=== PATIENT | female | born 1985 | race Caucasian/White ===

== ENCOUNTER 2017-10-25 16:03 | Inpatient (IN) | payer OTHER ==
[~2017-10-25] VITALS: Ht 154.9 cm; Wt 47.7 kg
[~2017-10-25 16:03] MED LIST: ALPRAZOLAM1 M2 PO; DEXTROAMP-AMPHE20 M1 PO; DEXTROAMP-AMPHE20 MG PO; FLUOXETINE HCL10 M2 PO; MIRTAZAPINE7.5 M1 PO; OMEPRAZOLE20 M2 PO; ONE DAILY MULT1 EAC2 PO; SENOKOT-S TABL1 EACH PO
--- NOTE | 2017-10-25 17:10 | ED PSYCHIATRIC COMPLAINT ---
History of Present Illness General Chief Complaint: ETOH/Drug Related Complaint Stated Complaint: ETOH DETOX Source: patient Exam Limitations: no limitations Vital Signs & Intake/Output Vital Signs & Intake/Output Vital Signs Date Time Temp Pulse Resp B/P B/P Pulse O2 O2 Flow FiO2 Mean Ox Delivery Rate 10/26 0000 97.9 86 20 132/97 10/26 0000 98 Room Air 10/25 2157 99.2 79 16 60955/8 10/25 2100 99.2 79 16 125/86 99 10/25 1907 98.8 74 18 131/83 100 Room Air 10/25 1900 98.8 74 18 131/83 10/25 1854 Room Air 10/25 1606 98.9 93 18 125/87 98 Room Air ED Intake and Output 10/26 0000 10/25 1200 Intake Total Output Total Balance Patient 104 lb Weight Weight Reported by Patient Measurement Method Allergies Coded Allergies: NO KNOWN ALLERGIES (04/11/11) Reconcile Medications Alprazolam 1 MG TABLET 1 TAB PO TID ANXIETY (Reported) Dextroamphetamine/Amphetamine (Dextroamp-Amphetamin 20 MG Tab) 20 MG TABLET 1 TAB PO DAILY PRN ADHD (Reported) Dextroamphetamine/Amphetamine (Dextroamp-Amphet ER 20 MG Cap) 20 MG CAP.ER.24H 1 CAP PO QAM ADHD (Reported) Fluoxetine HCl 10 MG CAPSULE 1 CAP PO DAILY DEPRESSION (Reported) Mirtazapine 7.5 MG TABLET 1 TAB PO QPM SLEEP (Reported) Multivitamin (One Daily Multivitamin) 1 EACH TABLET 1 TAB PO DAILY MULTIVITAMIN Omeprazole 20 MG CAPSULE.DR 40 MG PO DAILY AC ACIDITY Sennosides/Docusate Sodium (Senokot-S Tablet) 8.6 MG-50 MG TABLET 1 TAB PO QPM GI (Reported) Triage Note: 31 YO FEMALE TO TRIAGE REQUESTING ALCOHOL DETOX. STATES SHE DRINKS VODKA DAILY, UNABLE TO QUANTIFY AMOUNT "I JUST PUT IT IN A WATER BOTTLE" STATES HAS BEEN DRINKING DAILY FOR APPROX 1 YEAR. STATES WAS HERE LAST YEAR FOR DETOX, STATES +SEIZURE HX WITH D/T'S. DENIES SI/HI. Triage Nurses Notes Reviewed? yes : No Patient currently breastfeeds: No HPI: Patient presents for evaluation of alcohol dependence and withdrawal. Patient states that she typically drinks about 4-5 vodka beverages daily but can't quantify the actual amount. Patient states that she has been drinking for about one year after the detox program. Patient denies any associated drug use. Last alcohol intake was last night. Patient does refer a history of a seizure associated with alcohol withdrawal years ago. Patient describes her symptoms as severe and nothing seems to make her feel better including Xanax that she currently takes. (Wesly Landeros MD) Past History Travel History Traveled to [place] past 21 day No Medical History Any Pertinent Medical History? 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 No (Wesly Landeros MD) Review of Systems Review of Systems Constitutional: Reports: no symptoms. EENTM: Reports: no symptoms. Respiratory: Reports: no symptoms. Cardiovascular: Reports: no symptoms. GI: Reports: no symptoms. Genitourinary: Reports: no symptoms. Musculoskeletal: Reports: no symptoms. Skin: Reports: no symptoms. Neurological/Psychological: Reports: see HPI. Hematologic/Endocrine: Reports: no symptoms. Immunologic/Allergic: Reports: no symptoms. All Other Systems: Reviewed and Negative (Wesly Landeros MD) Physical Exam Physical Exam General Appearance: SEE BELOW Neurological/Psychiatric: SEE BELOW Comments: General: Alert, calm, cooperative Head: Normocephalic, atraumatic Eyes: Normal inspection, no nystagmus, EOMI Ears: Normal inspection Nose: Normal inspection Throat: Moist mucosa Neck: Supple, no goiter Heart: Regular rate and rhythm, no murmurs rubs or gallops Lungs: Clear to auscultation bilaterally with good air entry Abdomen: Soft nontender nondistended, normal bowel sounds Chest: Nontender Extremities: Normal range of motion grossly, mild tremors present, no cyanosis clubbing or edema of the upper extremities Neurologic: cranial nerves II through XII grossly intact, speech clear, gait normal Psychiatric: No apparent delusions or hallucinations, no pressured speech or thought blocking, mildly anxious SAD PERSONS Done? patient not suicidal (Wesly Landeros MD D.) Progress Differential Diagnosis: ALCOHOL WITHDRAWAL, ELECTROLYTE ABNORMALITY, DEHYDRATION , DRUG ABUSE Plan of Care: Orders Procedure Date/time Status Regular Diet 10/26 B Active OXYGEN SETUP (GEN) 10/27 11 Active Saline Lock 10/27 11 Active Admit to inpatient 10/27 11 Active Vital Signs 10/27 11 Active Activity/Ambulation 10/27 11 Active Code Status 10/27 11 Active Pathway - chart 10/25 2004 Active CIWA 10/25 1709 Active URINE DRUG SCREEN FOR ER ONLY 10/25 1709 Complete MAGNESIUM 10/25 1709 Complete LIPASE 10/25 1709 Complete ETHANOL 10/25 1709 Complete COMPREHENSIVE METABOLIC PANEL 10/25 1709 Complete CBC WITHOUT DIFFERENTIAL 10/25 1709 Complete Current Medications Sig/Guy Start time Last Medication Dose Stop Time Status Admin Lorazepam 2 MG Q2P PRN 10/25 2014 UNVr 10/25 (Ativan) 220 Lorazepam 1 MG Q2P PRN 10/25 2014 UNVr (Ativan) Laboratory Tests 10/25/17 1828: Urine Opiates Screen < 100, Methadone Screen < 40, Barbiturate Screen < 60, Ur Phencyclidine Scrn < 6.00, Amphetamines Screen < 100, U Benzodiazepines Scrn > 800 H, Urine Cocaine Screen < 50, Urine Cannabis Screen 7.20 10/25/17 1814: Anion Gap 15, Estimated GFR > 60, BUN/Creatinine Ratio 16.7, Glucose 112 H, Calcium 9.9, Magnesium 1.3 L, Total Bilirubin 1.0, AST 218 H, ALT 127 H, Alkaline Phosphatase 85, Total Protein 7.6, Albumin 4.4, Globulin 3.2, Albumin/ Globulin Ratio 1.4, Lipase 165, CBC w Diff NO MAN DIFF REQ, RBC 4.88, MCV 96.5, MCH 31.7 H, MCHC 32.8 L, RDW 14.3, MPV 8.4, Gran % 67.2, Lymphocytes % 23.0, Monocytes % 9.3, Eosinophils % 0.1, Basophils % 0.4, Absolute Granulocytes 4.9, Absolute Lymphocytes 1.7, Absolute Monocytes 0.7 H, Absolute Eosinophils 0, Absolute Basophils 0, Serum Alcohol < 10.0 Comments: 10/25/2017 7:46:52 PM patient's CIWA score is at least 8 at this time. She has a history of seizures and therefore meets criteria for inpatient detoxification according to the [facility] emergency medicine alcohol detoxification protocol. 10/25/2017 7:58:04 PM patient signed out to Dr. Fisher at shift change person pending insurance authorization for admission. (Leti BULL,Wesly Walker) Comments: Authorization for hospitalization for alcohol dependence and withdrawal. (Natalia BULL,[place]) Departure Departure Disposition: STILL A PATIENT Condition: Stable Clinical Impression Primary Impression: Alcohol withdrawal Qualifiers: Complication of substance-induced condition: uncomplicated Qualified Code: F10.230 - Alcohol dependence with withdrawal, uncomplicated Referrals: Unknown (PCP/Family) Departure Forms: Customer Survey General Discharge Information (Leti BULL,Wesly Walker) Admission Note Spoke With: Orville Celeste MD Documentation of Exam: Documentation of any treatments & extenuating circumstances including Concerns Regarding Discharge (functional status, medication knowledge or non-compliance, living conditions, etc.) that warrant an admission rather than observation: Psychiatric evaluation for alcohol dependence serial CIWA medications to prevent DTs withdrawal seizure medication adjustment continuing care discharge planning ([place] Fisher MD)
[2017-10-25 18:30] LABS: ABSOLUTE BASOPHIL COUNT 0 /CUMM (0.0-0.2); ABSOLUTE EOSINOPHIL COUNT 0 /CUMM (0.0-0.7); ABSOLUTE GRANULOCYTE CT 4.9 /CUMM (1.4-6.5); ABSOLUTE LYMPH COUNT 1.7 /CUMM (1.2-3.4); ABSOLUTE MONOCYTE COUNT 0.7 /CUMM (0.10-0.60); BASOPHIL % 0.4 % (0.0-2.0); EOSINOPHIL % 0.1 % (0-5); GRANULOCYTE % 67.2 % (42.2-75.2); HEMATOCRIT 47.1 % (37-47); MEAN CORPUSCULAR HGB 31.7 PG (27.0-31.0); MEAN CORPUSCULAR HGB CONC 32.8 G/DL (33.0-37.0); MEAN CORPUSCULAR VOLUME 96.5 FL (81.0-99.0); MEAN PLATELET VOLUME 8.4 FL (7.4-10.4); PLATELET COUNT 289 /CUMM (130-400); RBC DISTRIBUTION WIDTH 14.3 % (11.5-14.5); RED BLOOD CELL CT 4.88 /CUMM (4.20-5.40); WHITE BLOOD CELL COUNT 7.3 /CUMM (4.8-10.8)
[2017-10-25 19:00] VITALS: BP 131/83
[2017-10-25 21:57] VITALS: BP 13125/8
[2017-10-26] VITALS (12 sets, daily range): BP systolic 120–140; BP diastolic 82–108
--- NOTE | 2017-10-26 00:41 | History & Physical ---
MartinsMalena Wallace 10/26/17 0035: General Information and HPI MD Statement: I have seen and personally examined BIJU PLASCENCIA and documented this H&P. The patient is a 31 year old F who presented with a patient stated chief complaint of [Alcohol Detox]. Source of Information: patient, old records Exam Limitations: no limitations History of Present Illness: Ms. Plascencia is a 31yo F w/ PMH of hypertension, hyperlipidemia, alcohol dependence, anxiety, history of pancreatitis, ADHD, presented to ER with request for alcohol detox. Her last drink was last night. Patient also stated positive seizure history of alcohol withdrawal, however denies suicidal/homicidal ideations. Patient had underwent detox program at a rehab around 2010 where she developed a possible alcohol-withdrawal seizure during the program, however she could not remember the details. Also, she developed pancreatitis about the same time and resolved after. Patient had been sober without alcohol till 2015 when she picked up drinking and underwent alcohol detox at [facility], later discharged, however only shortly after when she picked up drinking again. This time, she also c/o nausea/non bloody vomiting/abdominal pain/possible black stool w/o BRBPR on/off in the past weeks, with decreasing appetites. Her last drink was the night before admission with about 4-5 cups of alcoholic beverage. During our clinical interaction, patient denied fever/night sweat/cough/SOB/ Chest Pain/Palpitation/urinary abnormality, or other skin/musculoskeletal/ neurological disorders. -Smoking:denied -Alcohol: 4-5 vodka beverages daily x 1 yr after last detox -Rec Drugs: denied Allergies/Medications Allergies: Coded Allergies: NO KNOWN ALLERGIES (04/11/11) Home Med list Alprazolam 1 MG TABLET 1 TAB PO TID ANXIETY (Reported) Dextroamphetamine/Amphetamine (Dextroamp-Amphetamin 20 MG Tab) 20 MG TABLET 1 TAB PO DAILY PRN ADHD (Reported) Dextroamphetamine/Amphetamine (Dextroamp-Amphet ER 20 MG Cap) 20 MG CAP.ER.24H 1 CAP PO QAM ADHD (Reported) Lisinopril 5 MG TABLET 1 TAB PO DAILY bp (Reported) Metoprolol Succinate 100 MG TAB.ER.24H 1 TAB PO DAILY bp (Reported) Multivitamin (One Daily Multivitamin) 1 EACH TABLET 1 TAB PO DAILY MULTIVITAMIN Rosuvastatin Calcium (Crestor) 5 MG TABLET 1 TAB PO DAILY bp (Reported) Sennosides/Docusate Sodium (Senokot-S Tablet) 8.6 MG-50 MG TABLET 1 TAB PO QPM GI (Reported) Past History Travel History Traveled to [place] past 21 day No Medical History Neurological: NONE EENT: NONE Cardiovascular: hypertension, hyperlipidemia Respiratory: NONE Gastrointestinal: NONE Hepatic: NONE Renal: NONE Musculoskeletal: NONE Psychiatric: alcohol dependence, anxiety Endocrine: NONE, PANCRETITIS Blood Disorders: NONE Cancer(s): 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 boyfriend Primary Language: Serbian ETOH Use: alcoholic Functional Ability ADLs Independent: dressing, eating, toileting, bathing. Ambulation: independent IADLs Independent: shopping, housework, finances, food prep, telephone, transportation , medication admin. Review of Systems Review of Systems Constitutional: Reports: see HPI. Exam & Diagnostic Data Last 24 Hrs of Vital Signs/I&O Vital Signs Date Time Temp Pulse Resp B/P B/P Pulse O2 O2 Flow FiO2 Mean Ox Delivery Rate 10/26 0141 97.1 88 20 136/82 / 0000 97.9 86 20 132/97 05/ 0000 98 Room Air 10/25 2157 99.2 79 16 94839/8 05/ 2100 99.2 79 16 125/86 99 10/25 1907 98.8 74 18 131/83 100 Room Air 10/25 1900 98.8 74 18 131/83 10/25 1854 Room Air 10/25 1606 98.9 93 18 125/87 98 Room Air Intake & Output 10/26 0800 / 0000 10/25 1600 Intake Total Output Total Balance Patient 47.174 kg Weight Weight Reported by Patient Measurement Method Physical Exam General Appearance Alert, Oriented X3, Cooperative, Mild Distress Skin No Rashes, No Breakdown, No Significant Lesion Skin Temp/Moisture Exam: Warm/Dry Sepsis Skin Exam (color): Normal for Ethnicity HEENT Atraumatic, PERRLA Neck Supple, No JVD Cardiovascular Regular Rate Lungs Clear to Auscultation, Normal Air Movement Abdomen Soft, Epigastric and RLQ abdominal tenderness on palpation. Neurological Normal Speech Extremities No Cyanosis, No Edema, Normal Pulses Last 24 Hrs of Labs/Charles: Laboratory Tests 10/25/17 1828: Urine Opiates Screen < 100, Methadone Screen < 40, Barbiturate Screen < 60, Ur Phencyclidine Scrn < 6.00, Amphetamines Screen < 100, U Benzodiazepines Scrn > 800 H, Urine Cocaine Screen < 50, Urine Cannabis Screen 7.20 10/25/17 1814: Anion Gap 15, Estimated GFR > 60, BUN/Creatinine Ratio 16.7, Glucose 112 H, Calcium 9.9, Magnesium 1.3 L, Total Bilirubin 1.0, AST 218 H, ALT 127 H, Alkaline Phosphatase 85, Total Protein 7.6, Albumin 4.4, Globulin 3.2, Albumin/ Globulin Ratio 1.4, Lipase 165, CBC w Diff NO MAN DIFF REQ, RBC 4.88, MCV 96.5, MCH 31.7 H, MCHC 32.8 L, RDW 14.3, MPV 8.4, Gran % 67.2, Lymphocytes % 23.0, Monocytes % 9.3, Eosinophils % 0.1, Basophils % 0.4, Absolute Granulocytes 4.9, Absolute Lymphocytes 1.7, Absolute Monocytes 0.7 H, Absolute Eosinophils 0, Absolute Basophils 0, Hepatitis A IgM Ab Pending, Hep Bs Antigen Pending, Hep B Core IgM Ab Conf Pending, Hepatitis C Antibody Pending, Serum Alcohol < 10.0 Assessment/Plan Assessment: Problem list & Assessment: Patient presented with voluntary request for alcohol detox, was remote history of alcohol withdrawal related seizures. Patient also had a history of pancreatitis, however, this time was only transaminitis without elevation of lipase/amylase. Patient also demonstrates some abdominal pain at epigastric/ right upper quadrant abdomen that may need further evaluation. Patient vomited during our clinical interaction while taking oral pills, was mostly food contents without any blood in vomitus. Will switch medications to IV and continue monitor. Will keep n.p.o. tonight Her lab derangement including hypokalemia and hypomagnesemia could be from alcohol abuse. Will correct accordingly. #Alcohol detox with history of alcohol withdrawal seizure #Transaminitis #Hypokalemia #Hypomagnesemia #Nausea/vomiting #PMH of hypertension, hyperlipidemia, anxiety, ADHD Hospital Course: - Admit to general medicine floor -[facility] protocol -Ativan q. 1 hour IV as needed per CIWA midnight, and restart on clear liquid diet as patient's tolerance after ultrasound. DVT prophylaxis Lovenox + ALPS NPO Full Code As Ranked By This Provider Problem List: 1. ALCOHOL WITHDRAWAL 2. Alcohol abuse 3. Anxiety 4. Transaminitis 5. Hypokalemia Core Measures/Misc (03/12) Acute Coronary Syndrome ACS Diagnosis: No Congestive Heart Failure Congestive Heart Failure Diagnosis No Cerebrovascular Accident CVA/TIA Diagnosis: No VTE (View Protocol) VTE Risk Factors No risk factors No Mechanical VTE Prophylaxis d/t N/A MechProphylax Ordered No VTE Pharm Prophylaxis d/t NA PharmProphylax ordered Sepsis (View protocol) Sepsis Present: No Ana Regansherita 10/26/17 0136: Resident Review Statement Resident Statement: examined this patient, discussed with internet marketing director Other Findings: Patient is a 31-year-old female with past medical history of alcohol abuse, alcohol withdrawal seizure, anxiety, ADHD, hypertension, hyperlipidemia, pancreatitis who presented to the ED today voluntarily for alcohol detoxification Patient reports that she has been drinking about 4-5 drinks of vodka(each 4-6 ounces) every day for the past 2 years. Last drink was last night. She has also been having nausea and vomiting with some vague abdominal discomfort in the epigastrium. Denies any chest pain, palpitations, headaches, diarrhea, constipation. Denies any bright red blood in stools but admits to dark stools. She was admitted to [facility] in 2016 for alcohol detox and since then she has never really been sober. She restarted drinking post discharge from rehabilitation. Cannot identify a trigger that led to drinking again. Denies any SI/HI. She tried to cut down on her drinking several times, but has been unsuccessful .She does have a history of alcohol seizure(2010) after she tried to tried detox herself. Vitals in the ER was stable. Labs significant for potassium of 3.2, chloride 91, AST 218, ALT 127, normal lipase, U tox positive for benzos. Physical exam General: Awake, alert, oriented, mild distress due to nausea HEENT: PERRLA, EOMI Chest clear breath sounds bilaterally CVS: S1 and S2 heard, no murmurs Abdomen: Tenderness in the right upper quadrant and epigastrium. Extremities: No edema, palpable pulses Assessment Alcohol detoxification Alcoholic gastritis History of alcohol withdrawal seizure Benzo dependence Nausea and vomiting Transaminitis Hypokalemia and hypomagnesemia Hypertension ADHD GERD Smoker Plan * [facility] * Seizure precautions/aspiration precautions * CINV protocol * Will start patient on Librium for alcohol detox, 25 mg 3 times a day * Ativan Q1 IV PRN per CIWA * We will get an EKG to check for QTC ,continue Tigan for nausea and vomiting * Banana bag, then continue KCL in 1/2 NS at 75 cc an hour * Multivitamin , thiamine and folate * Complete abdomen USG for transaminitis, we'll check hepatitis panel * Continue metoprolol for high blood pressure, holding lisinopril for now * We will hold Crestor for high LFTs, will hold XANAX * Continue Adderall for ADHD(pharmacy does not carry the medication, we will try to substitute for similar med) * Psychiatric consult * humidifier maintenance worker consult * DVT prophylaxis subcutaneous Lovenox * Full code * NPO now for ultrasound in a.m., then clear liquid diet and advance as tolerated Booker BULL, [facility] 10/26/17 0400: Attending MD Review Statement Attending Statement Attending MD Statement: examined this patient, discuss w/resident/PA/STUDENT ACCOUNTS COORDINATOR, agreed w/resident/PA/STUDENT ACCOUNTS COORDINATOR, reviewed images, amended to note Attending Assessment/Plan: 31 yo F smoker with h/o alcohol abuse, HTN, HLD, previous withdrawal seizure, pancreatitis, ADHD, anxiety, opiate dependence, last admitted for alcohol detox to [facility] in 2016, after which she continued to drink and is here today for alcohol detox. She drinks 4-6 ounces vodka daily, last drink was 1 day prior. She reports nausea, vomiting, vague epigastric and left sided abdominal discomfort. She has loss her appetite and is unable to keep anything down. She denies hematemesis, melena or BRBPR. C/o heartburn+. No fever/ chills. She tried to detox herself by cutting down her alcohol intake but this did not help. Denies SI or HI. Vitals stable except for labile BP. Exam: dry mucosa, Abd soft, epigastric and left lower quadrant mild tenderness, no rebound or guarding. Labs: K 3.2, bicarb 32, glucose 112, Mag 1.3, T. Bili 1.0, AST 218, ALT 127. Lipase 165. Urine tox positive for benzos and small amount of cannabis. Alcohol <10. Assessment and plan: 1. Alcohol withdrawal 2. Alcoholic gastritis 3. Transaminitis 2/2 alcohol use 4. History of anxiety, opiate dependence 5. Smoker 6. Hypokalemia and hypomagnesemia 7. Hypertension - Admit to General medicine - [facility] protocol - IV ativan per [facility] - PO Librium 25 TID, uptitrate based on [facility] - Obtain baseline EKG - Banana bag, then MVI/thiamine/folic acid - Clear liquid diet - IV pantoprazole - Supplement potassium and magnesium - Anti-emetics - Hold crestor - Hep panel 2015 was negative. - Check abdomen ultrasound to assess for liver parenchyma and pancreas - Resume metoprolol, dextro-amphetamine - If BP allows, can resume lisinopril - Hold xanax - Check TSH, free T4, B12, folic acid - Psych consult ADD, benzo dependence - Social work consult - Smoking cessation counseling, nicotine patch DVT ppx lovenox. Full code.
[2017-10-26] MEDS ORDERED: CRESTOR5 M1 PO (01:02)
[2017-10-26] MEDS ORDERED: LISINOPRIL5 M1 PO (01:02)
[2017-10-26] MEDS ORDERED: METOPROLOL SUC100 M2 PO (01:03)
--- NOTE | 2017-10-26 04:01 | Admission Certification ---
Admission Certification Certification Statement - As attending physician, I certify that at the time of - admission, based on clinical presentation, severity of - symptoms, need for further diagnostic testing and - therapeutic interventions, and risk of adverse outcomes - without in-hospital treatment, in my clinical assessment, - this patient requires an acute hospital stay for a minimum - of two nights or longer. I have also considered psychsocial - factors such as support system, advanced age, financial - issues, cognitive issues, and failed out-patient treatments, - past re-admission history, safety of patient, and lack of - compliance as applicable. Specific rationale supporting this admission is: Alcohol withdrawal.
--- NOTE | 2017-10-26 12:22 | ED PSYCHIATRIST/APRN CONSULT ---
Psychiatrist/[facility] ED Consult Assessment and Plan: CC: "I know I can't drink at all. The last time, I didn't follow up. this time, I want IOP. My work hours vary, but that won't interfere." HPI: 31-year-old single, domiciled female presents to triage on 2017 at 1608 with a chief complaint of requesting alcohol detox. She reports a history of seizure, DTs in the setting of alcohol detoxification. The seizure occurred after a fast benzodiazepine taper at another hospital before she was sent to [facility], where the seizures occurred. She recently stopped eating meat. PPHx: She is currently treated for ADHD and anxiety by Dr. Gail Villanueva, [address] [place] [address]. She has a history of treatment for depression. He is currently prescribin. Alprazolam 1 mg tablet #63/21 days, filled on 10/10/2017 2. Dextroamphetamine-amphetamine salts 30 mg tablets #21/21 days, filled on 3. Adderall X are 30 mg capsule #21/21 days, filled on 10/10/2017 Presentation s to the ED in 2010 (Alcohol detox), 2011 (+SI) and 2016 (Alcohol detox) [facility] 2010, followed by 5 years (Pt report) of sobriety. PsychSHx: The patient is currently living in her boyfriend's condo with him, at [address] [place] [address], [address] , [place], [place]. She is between jobs, but will work part-time in the [employer]. She does not have children. MSE: Alert, tired, with abdominal pain (Team aware), she is S/P liver US today; see the Addendum for report. Oriented to person, place, day, month, year. She denies current visual, tactile or auditory hallucinations, and presents no rell delusions. She reports She has had visual disturbances during alcohol withdrawal in the past, including streaks of light, and objects changing into people. She reports she feels safe here. She denies hopelessness, helplessness, worthlessness, or guilty feelings. She denies SI, HI, and denies history of suicide attempt. Impression: The patient is motivated for treatment, is willing to accept treatment at the [facility]. She had felt in the past that AA was not for her, after exposure at [facility] 6-7 years ago. She is willing to try it again, understanding that one of her goals should be to find a sponsor. Plan: 1. Chlordiazepoxide should be discontinued due to liver irritation, whereas lorazepam is less likely to worsenthis. It should be replaced with the standard ETOH Detox lorazepam order set, starting at Day One. If you need assistance with this, we will be happy to guide you. 2. Start daily thiamine, folic acid and MVI. 3. Stop methylphenidate. She is on amphetamine salts, IR and XR at home, which will likely exacerbate her anxiety during detox. 4. SW consult to assist with aftercare planning 5. Replete potassium and magnesium. 6. Please obtain a baseline EKG. 7. If violent or severe agitation, hallucinosis, imminent DTs, please consider a transfer to the ICU and a lorazepam IV drip. We will continue to follow along with you. Thank you for this consult. Addendum Addendum PATIENT: BIJU NAVAS PRESENT AGE: 31 PATIENT ACCOUNT NO: [id number] : 85 LOCATION: 2NB ORDERING PHYSICIAN: Chandler Regan MD SERVICE DATE: 10/26/17- EXAM TYPE: US - US-COMPLETE ABDOMEN EXAMINATION: US ABDOMEN COMPLETE CLINICAL INFORMATION: Transaminitis, tenderness in the epigastrium and right upper quadrant of the abdomen. COMPARISON: None TECHNIQUE: Real-time imaging of the abdominal viscera. FINDINGS: PANCREAS: Shows apparent subtle diffuse hypoechogenicity, may represent normal finding versus early edematous pancreatitis. Clinical and lab correlation is recommended. ABDOMINAL AORTA: The proximal segment is normal in caliber. INFERIOR VENA CAVA: Visualized portions are normal. LIVER: There is diffuse increased liver parenchymal echogenicity, consistent with diffuse liver disease. There is no sonographic evidence of superimposed discrete focal abnormality present. GALLBLADDER: Normal. The gallbladder is physiologically distended without evidence of stones, sludge, polyps, wall thickening or pericholecystic fluid. COMMON BILE DUCT: Normal in caliber measuring 0.2 cm in diameter. RIGHT KIDNEY: Normal. No hydronephrosis. No renal calculi or focal parenchymal lesions. The kidney measures 10.1 cm in maximum dimension. LEFT KIDNEY: Normal. No hydronephrosis. No renal calculi or focal parenchymal lesions. The kidney measures 10.8 cm in maximum dimension. SPLEEN: Normal. The spleen measures 9.5 cm in maximum dimension. FREE FLUID: None IMPRESSION: 1. Mild diffuse heterogeneous abnormal increased echotexture is noted within the liver, consistent with diffuse liver disease, likely hepatic steatosis. No sonographic evidence of any superimposed discrete focal abnormality present. 2. The pancreas shows apparent subtle diffuse hypoechogenicity, may represent normal finding versus mild early pancreatitis. Clinical and lab correlation is recommended. 3. Otherwise unremarkable. DICTATED BY: Roshan Bojorquez MD DATE/TIME DICTATED:10/26/171137 PATTERN GENERATOR OPERATOR:LUZMARIA DATE/TIME TRANSCRIBED:10/26/171137 CONFIDENTIAL, DO NOT COPY WITHOUT APPROPRIATE AUTHORIZATION
--- NOTE | 2017-10-26 12:30 | ULTRASOUND REPORT ---
EXAMINATION: US ABDOMEN COMPLETE CLINICAL INFORMATION: Transaminitis, tenderness in the epigastrium and right upper quadrant of the abdomen. COMPARISON: None TECHNIQUE: Real-time imaging of the abdominal viscera. FINDINGS: PANCREAS: Shows apparent subtle diffuse hypoechogenicity, may represent normal finding versus early edematous pancreatitis. Clinical and lab correlation is recommended. ABDOMINAL AORTA: The proximal segment is normal in caliber. INFERIOR VENA CAVA: Visualized portions are normal. LIVER: There is diffuse increased liver parenchymal echogenicity, consistent with diffuse liver disease. There is no sonographic evidence of superimposed discrete focal abnormality present. GALLBLADDER: Normal. The gallbladder is physiologically distended without evidence of stones, sludge, polyps, wall thickening or pericholecystic fluid. COMMON BILE DUCT: Normal in caliber measuring 0.2 cm in diameter. RIGHT KIDNEY: Normal. No hydronephrosis. No renal calculi or focal parenchymal lesions. The kidney measures 10.1 cm in maximum dimension. LEFT KIDNEY: Normal. No hydronephrosis. No renal calculi or focal parenchymal lesions. The kidney measures 10.8 cm in maximum dimension. SPLEEN: Normal. The spleen measures 9.5 cm in maximum dimension. FREE FLUID: None IMPRESSION: 1. Mild diffuse heterogeneous abnormal increased echotexture is noted within the liver, consistent with diffuse liver disease, likely hepatic steatosis. No sonographic evidence of any superimposed discrete focal abnormality present. 2. The pancreas shows apparent subtle diffuse hypoechogenicity, may represent normal finding versus mild early pancreatitis. Clinical and lab correlation is recommended. 3. Otherwise unremarkable.
--- NOTE | 2017-10-26 22:36 | PN- Att Addend ---
Attending Addendum Attending Brief Note S: The patient notes significant improvement in abdominal symptoms. Tolerating clear liquids w/o vomiting. O: VS: Vital Signs Date Time Temp Pulse Resp B/P B/P Pulse O2 O2 Flow FiO2 Mean Ox Delivery Rate 10/26 1445 98.4 84 18 122/96 98 Room Air 05/03 1400 136/96 05/ 1124 74 140/108 05/03 1000 74 140/108 05/ 0800 78 130/100 05/03 0700 98.3 125/100 05/03 0650 98.3 95 18 128/108 98 05/03 0440 128/100 05/03 0335 98.2 88 18 138/102 05/03 0310 98.2 88 18 138/102 96 05/03 0141 97.1 88 20 136/82 05/ 0000 97.9 86 20 132/97 05/03 0000 98 Room Air Intake & Output 10/26 1600 10/26 0800 05/ 0000 Intake Total 1250 450 Output Total Balance 1250 450 Intake, IV 450 450 Intake, Oral 800 Patient 104 lb 104 lb Weight Weight Reported by Patient Reported by Patient Measurement Method Current Medications Sig/Guy Start time Last Medication Dose Route Stop Time Status Admin Acetaminophen 325 MG Q6P PRN 10/26 0045 AC PO Atorvastatin Calcium 20 MG 1700 10/26 1700 CAN PO Chlordiazepoxide HCl 25 MG TID 10/26 0900 CAN PO Cyanocobalamin/ 1 BAG ONCE ONE 10/26 0230 DC 10/26 Thiamine/Pyridoxine IV 10/26 1029 0219 Dextrose/Water 1,000 ML Enoxaparin Sodium 40 MG DAILY 10/26 09 10/26 SC 1122 Fluoxetine HCl 10 MG DAILY 10/26 0900 CAN PO Folic Acid 1 MG DAILY 10/26 09 AC 10/26 PO 1121 Lisinopril 5 MG DAILY 10/26 0900 CAN PO Lorazepam 2 MG Q6 10/26 1200 AC 10/26 PO 1744 Lorazepam 0 .STK-MED ONE 10/26 0151 DC .ROUTE Lorazepam 1 MG Q1P PRN 10/26 0145 AC 10/26 IV 2044 Lorazepam 2 MG Q2P PRN 10/25 2014 AC 10/25 IV 2206 Lorazepam 1 MG Q2P PRN 10/25 2014 DC IV Magnesium Sulfate 1 GM ONCE ONE 10/26 0200 DC 10/26 Dextrose/Water 100 ML IV 10/26 0559 0211 Methylphenidate HCl 20 MG 0800,1200,1600 10/26 0800 DC PO Metoprolol Succinate 100 MG DAILY 10/26 0900 AC 10/26 PO 1124 Mirtazapine 7.5 MG QPM 10/26 2100 CAN PO Multivitamins 1 TAB DAILY 10/26 0900 AC 10/26 PO 1122 Omeprazole 40 MG DAILY AC 10/27 0700 AC PO Omeprazole 40 MG DAILY AC 10/26 0700 CAN PO Pantoprazole Sodium 40 MG DAILY 10/26 0900 DC 10/26 IV 1122 Patient Medication 1 ED ONE ONE 10/26 1200 DC 10/26 Teaching ED 10/26 1201 1434 Potassium Chloride 20 MEQ ONCE ONE 10/26 1830 DC 10/26 PO 10/26 1831 1946 Potassium Chloride 10 MEQ Q1H 10/26 1100 DC 10/26 IV 10/26 1201 1542 Potassium Chloride 40 MEQ ONCE ONE 10/26 1045 DC 10/26 PO 10/26 1046 1434 Potassium Chloride 0 .STK-MED ONE 10/26 0102 DC PO Potassium Chloride 20 MEQ Q13H 10/26 0100 AC 10/26 Sodium Chloride 1,000 ML IV 10/27 0600 1542 Potassium Chloride 40 MEQ ONCE ONE 10/26 0045 DC 10/26 PO 10/26 0046 0057 Thiamine HCl 100 MG DAILY 10/26 0900 AC 10/26 PO 1122 Trimethobenzamide HCl 200 MG 4 TIMES/DAY PRN 10/26 0100 AC 10/26 IM 0117 HEENT: neisha- sl dry mucosa Neck: supple Chest: clear Cor: RRR nl S1, S2 w/o murm Abd: BS+, soft, NT Ext: no edema Neuro: slightly sedated, however oriented and non-focal exam Labs/Tests: Laboratory Tests 10/26/17 1634: 10/26/17 0835: Anion Gap 11, Estimated GFR > 60, BUN/Creatinine Ratio 26.0 H, Magnesium 1.9, Vitamin B12 > 1000 H, Folate > 20.0 H, TSH 0.897, Free T4 1.13 Abd US: IMPRESSION: 1. Mild diffuse heterogeneous abnormal increased echotexture is noted within the liver, consistent with diffuse liver disease, likely hepatic steatosis. No sonographic evidence of any superimposed discrete focal abnormality present. 2. The pancreas shows apparent subtle diffuse hypoechogenicity, may represent normal finding versus mild early pancreatitis. Clinical and lab correlation is recommended. 3. Otherwise unremarkable. Impression/Plan: #Alcohol Dependence/Withdrawal- as above patient oriented and improved. Appreciate psychiatry input. Plan: Agree with psychiatry to change from Librium to Ativan as LFT's are abnormal. Continue CIWA protocol, MVI, thiamine, folate, etc. Social Service consult. #Hypokalemia/Hypomagnesemia- due to vomiting/nutrition issues. Plan: Being repleted and will follow. #Abnormal LFT's/Transaminitis- most c/w alcoholic hepatitis. US c/w fatty liver. Plan: Will trend and follow as OP. #Gastritis- c/w alcohol related gastritis. Much improved. Plan: Advance diet as tolerated. Continue Omeprazole.
[2017-10-27 06:58] VITALS: BP 132/96
--- NOTE | 2017-10-27 08:04 | PN- Housestaff ---
See Addendum Soto BULL,Darlyn 10/27/17 0804: Subjective Follow-up For: 1. Alcohol Detox 2. Alcoholic gastritis 3. Transaminitis 2/2 alcohol use 4. History of anxiety, opiate dependence 5. Smoker 6. Hypokalemia and hypomagnesemia 7. Hypertension Complaints: no complaints Subjective: Patient seen and examined. Complains of anxiety. Denies any other symptoms. No longer nauseaus, tolerating regular food. Review of Systems Constitutional: Reports: no symptoms. Objective Last 24 Hrs of Vital Signs/I&O Vital Signs Date Time Temp Pulse Resp B/P B/P Pulse O2 O2 Flow FiO2 Mean Ox Delivery Rate 10/27 1000 76 18 130/88 10/27 0850 76 130/88 10/27 0658 98.1 80 20 132/96 96 10/26 2242 98.2 87 20 120/86 98 10/26 1445 98.4 84 18 122/96 98 Room Air 10/26 1400 136/96 Intake & Output 10/27 1600 10/27 0800 10/27 0000 Intake Total 840 790 Output Total Balance 840 790 Intake, IV 600 550 Intake, Oral 240 240 Patient 105 lb Weight Weight Bed scale Measurement Method Physical Exam General Appearance: Alert, Oriented X3, Cooperative, No Acute Distress HEENT: Mucous Membr. moist/pink Cardiovascular: Regular Rate, Normal S1, Normal S2 Lungs: Clear to Auscultation, Normal Air Movement Abdomen: Normal Bowel Sounds, Soft, No Tenderness Extremities: No Edema, Normal Pulses Orders CIWA Score (last 24 hrs): 0-10 Lines/Diet/Fluids Lines: peripheral lines Assessment/Plan Assessment: 31 yo F smoker with h/o alcohol abuse, HTN, HLD, previous withdrawal seizure, pancreatitis, ADHD, anxiety, opiate dependence, last admitted for alcohol detox to [facility] in 2016, after which she continued to drink and is here today for alcohol detox. Problem List 1. Alcohol Detox/withdrawal 2. Alcoholic gastritis 3. Transaminitis 2/2 alcohol use 4. History of anxiety, opiate dependence 5. Smoker 6. Hypokalemia and hypomagnesemia 7. Hypertension Abd US- 1. Mild diffuse heterogeneous abnormal increased echotexture is noted within the liver, consistent with diffuse liver disease, likely hepatic steatosis. No sonographic evidence of any superimposed discrete focal abnormality present. 2. The pancreas shows apparent subtle diffuse hypoechogenicity, may represent normal finding versus mild early pancreatitis. Clinical and lab correlation is recommended. Plan -Continue CIWA protocol ativan PRN and PO ativan 2mg Q6hrs today as patient seems a bit more jittery today. CIWA score:0-10 in 24hrs -Titrate down to 2mg Q8hrs in AM -Nausea now resolved; was likely 2/2 alcoholic gastritis. Cont Tigan as needed -DC IVF -Transaminitis improving; likely 2/2 alcoholic hepatitis; continue daily LFTs -Hepatitis A,B and C neg -Electrolyte derangements corrected; monitor daily labs and correct as needed -Continue to hold Ritalin and xanax. can resume lisinopril if BP >140/90. -Continue nicotine patch -Continue Folate, thaimine and MVI -Continue Omeprazole -Psych and Social work input appreciated -Patient plans to go to [facility] on discharge -SC lovenox for DVT ppx -Heart healthy diet -FC Problem List: 1. Alcohol withdrawal 2. Transaminitis 3. Gastritis 4. Alcohol dependence Pain Ratin Pain Location: na Pain Goal: Remain pain free Pain Plan: na Tomorrow's Labs & Rationales: BEP, lfts DVT/Prophylaxis: pharmacological Estrada North MD 10/27/17 1247: Attending MD Review Statement Attending Statement Attending MD Statement: examined this patient, discuss w/resident/PA/PERFORMANCE SOLUTIONS SPECIALIST, agreed w/resident/PA/PERFORMANCE SOLUTIONS SPECIALIST, reviewed EMR data (avail), discussed with nursing, discussed with case mgmt, amended to note Attending Assessment/Plan: The patient was seen and discussed with house staff, nursing and case management. Her aide from home did not come in today (she is away x 1 week) and her son is in [place]. Today nursing was unable to get her to cooperate with taking PO meds or food. Due to advanced dementia she is not cooperating with people she does not know (she cooperated with her aide at home). Has bed at [facility], however unable to send until she is taking more po. Suggested nutrition involvement. Her aide says she likes ice cream and suggested mixing meds with this and making Ensure milkshakes. The nurse who was able to get her to take meds yesterday had had her also the previous day, so she may have been a "familiar face". Will continue IV fluids. If BP increases and not taking po meds consider IVPB Metoporol on floor (does not need tele).
[2017-10-27 10:00] VITALS: BP 130/88
[2017-10-27 15:07] VITALS: BP 130/98
[2017-10-27 16:00] VITALS: BP 130/98
[2017-10-27 21:34] VITALS: BP 130/90
--- NOTE | 2017-10-28 04:53 | PN- Housestaff ---
See Addendum Subjective Follow-up For: 1. Alcohol Detox 2. Alcoholic gastritis 3. Transaminitis 2/2 alcohol use 4. History of anxiety, opiate dependence 5. Smoker 6. Hypokalemia and hypomagnesemia 7. Hypertension Review of Systems Constitutional: Reports: no symptoms. Objective Last 24 Hrs of Vital Signs/I&O Vital Signs Date Time Temp Pulse Resp B/P B/P Pulse O2 O2 Flow FiO2 Mean Ox Delivery Rate 10/27 2134 98.9 86 18 130/90 100 10/27 1600 76 18 130/98 10/27 1507 98.3 76 20 130/98 98 Room Air 10/27 1000 76 18 130/88 10/27 0850 76 130/88 10/27 0658 98.1 80 20 132/96 96 Intake & Output 10/28 0800 10/28 0000 10/27 1600 Intake Total 1020 Output Total Balance 1020 Intake, IV 300 Intake, Oral 720 Physical Exam General Appearance: Alert, Oriented X3, Cooperative, No Acute Distress Cardiovascular: Regular Rate, Normal S1, Normal S2 Lungs: Clear to Auscultation, Normal Air Movement Abdomen: Normal Bowel Sounds, Soft, No Tenderness Extremities: No Edema, Normal Pulses Current Medications: Current Medications Sig/Guy Start time Last Medication Dose Route Stop Time Status Admin Acetaminophen 325 MG Q6P PRN 10/26 0045 AC PO Citalopram 20 MG DAILY 10/28 899 UNVr Hydrobromide PO Enoxaparin Sodium 40 MG DAILY 10/26 0900 AC 10/27 SC 0851 Folic Acid 1 MG DAILY 10/26 09 AC 10/27 PO 0851 Gabapentin 300 MG Q8 10/28 06 UNVr PO Lorazepam 1.5 MG Q6 10/28 0600 UNVr PO Lorazepam 2 MG Q6 10/26 1200 DC 10/27 PO 2301 Lorazepam 1 MG Q1P PRN 10/26 0145 AC 10/27 IV 2210 Lorazepam 2 MG Q2P PRN 10/25 2014 AC 10/28 IV 0153 Metoprolol Succinate 100 MG DAILY 10/26 0900 AC 10/27 PO 0850 Multivitamins 1 TAB DAILY 10/26 0900 AC 10/27 PO 0851 Nicotine 14 MG DAILY 10/27 1400 AC TOP Omeprazole 40 MG DAILY AC 10/27 0700 AC 10/27 PO 0511 Patient Medication 1 ED ONE ONE 10/27 1730 [facility] ED 10/27 1731 Potassium Chloride 20 MEQ Q13H 10/26 0100 SC 10/27 Sodium Chloride 1,000 ML IV 10/27 06 05 Thiamine HCl 100 MG DAILY 10/26 0900 AC 10/27 PO 0851 Trimethobenzamide HCl 200 MG 4 TIMES/DAY PRN 10/26 0100 10/26 IM 0117 Last 24 Hrs of Lab/Charles Results Last 24 Hrs of Labs/Mics: Laboratory Tests 10/27/17 0645: Anion Gap 10, Estimated GFR > 60, BUN/Creatinine Ratio 17.5, Magnesium 1.6, Total Bilirubin 1.2, Direct Bilirubin 0.4, AST 190 H, ALT 98 H, Alkaline Phosphatase 68, Total Protein 6.7, Albumin 3.8 Lines/Diet/Fluids Lines: peripheral lines Assessment/Plan Assessment: 31 yo F smoker with h/o alcohol abuse, HTN, HLD, previous withdrawal seizure, pancreatitis, ADHD, anxiety, opiate dependence, last admitted for alcohol detox to [facility] in 2015, after which she continued to drink and is here today for alcohol detox. Problem List 1. Alcohol Detox/withdrawal 2. Alcoholic gastritis 3. Transaminitis 2/2 alcohol use 4. History of anxiety, opiate dependence 5. Smoker 6. Hypokalemia and hypomagnesemia 7. Hypertension Abd US- 1. Mild diffuse heterogeneous abnormal increased echotexture is noted within the liver, consistent with diffuse liver disease, likely hepatic steatosis. No sonographic evidence of any superimposed discrete focal abnormality present. 2. The pancreas shows apparent subtle diffuse hypoechogenicity, may represent normal finding versus mild early pancreatitis. Clinical and lab correlation is recommended. Plan -Continue CIWA protocol ativan PRN -Taper PO ativan to 1.5mg Q6hrs today -Nausea now resolved; was likely 2/2 alcoholic gastritis. Cont Tigan as needed -Transaminitis improving; likely 2/2 alcoholic hepatitis; continue daily LFTs -Hepatitis A,B and C neg -Electrolyte derangements corrected; monitor daily labs and correct as needed -Continue to hold Ritalin and xanax. can resume lisinopril if BP >140/90. -Continue nicotine patch -Continue Folate, thaimine and MVI -Continue Omeprazole -Psych and Social work input appreciated -Patient plans to go to [facility] on discharge -SC lovenox for DVT ppx -Heart healthy diet -FC Problem List: 1. Alcohol dependence 2. ALCOHOL WITHDRAWAL 3. Transaminitis 4. Gastritis Pain Ratin Pain Location: na Pain Goal: Remain pain free Pain Plan: na Tomorrow's Labs & Rationales: none
[2017-10-28 06:23] VITALS: BP 133/89
[2017-10-28 14:14] VITALS: BP 124/88
[2017-10-28 23:48] VITALS: BP 118/83
[2017-10-29 07:02] VITALS: BP 116/71
--- NOTE | 2017-10-29 08:32 | PN- Housestaff ---
Aditi Paula 10/29/17 0832: Subjective Follow-up For: 1. Alcohol Detox 2. Alcoholic gastritis 3. Transaminitis 2/2 alcohol use 4. History of anxiety, opiate dependence 5. Smoker 6. Hypokalemia and hypomagnesemia 7. Hypertension Subjective: Patient is seen and examined this morning lying comfortably in the bed ,denies any complaints vital stable Review of Systems Constitutional: Denies: diaphoresis, fever, malaise. EENTM: Denies: double vision, visual changes, eye pain. Cardiovascular: Denies: edema, orthopena, palpitations. Respiratory: Denies: hemoptysis, orthopnea, short of breath. Gastrointestinal: Denies: bloating, constipation, diarrhea. Objective Last 24 Hrs of Vital Signs/I&O Vital Signs Date Time Temp Pulse Resp B/P B/P Pulse O2 O2 Flow FiO2 Mean Ox Delivery Rate 10/29 954 78 132/80 10/29 0702 98.1 78 20 116/71 100 Room Air 10/28 2348 97.5 83 20 118/83 100 Room Air 10/28 1414 97.8 79 20 124/88 99 Room Air Intake & Output 10/29 1600 10/29 0800 05/ 0000 Intake Total 700 Output Total Balance 700 Intake, Oral 700 Physical Exam General Appearance: Alert, Oriented X3 Skin: No Rashes, No Breakdown Skin Temp/Moisture Exam: Warm/Dry Current Medications: Current Medications Sig/Guy Start time Last Medication Dose Route Stop Time Status Admin Acetaminophen 325 MG Q6P PRN 10/26 0045 AC PO Citalopram 20 MG DAILY 10/28 899 AC 10/29 Hydrobromide PO 0956 Enoxaparin Sodium 40 MG DAILY 10/26 899 10/27 SC 0851 Folic Acid 1 MG DAILY 10/26 899 AC 10/29 PO 0956 Gabapentin 300 MG Q8 10/28 599 AC 10/29 PO 0623 Lorazepam 1.5 MG Q6 10/28 599 AC 10/29 PO 0623 Lorazepam 1 MG Q1P PRN 10/26 0145 AC 10/29 IV 0059 Lorazepam 2 MG Q2P PRN 10/25 2014 AC 10/28 IV 0153 Metoprolol Succinate 100 MG DAILY 10/26 899 AC 10/29 PO 0955 Multivitamins 1 TAB DAILY 10/26 899 AC 10/29 PO 0956 Nicotine 14 MG DAILY 10/27 1400 AC TOP Omeprazole 40 MG DAILY AC 10/27 0700 AC 10/29 PO 0623 Thiamine HCl 100 MG DAILY 10/26 0900 AC 10/29 PO 0955 Trimethobenzamide HCl 200 MG 4 TIMES/DAY PRN 10/26 0100 AC 10/26 IM 0117 Last 24 Hrs of Lab/Charles Results Last 24 Hrs of Labs/Mics: Laboratory Tests 10/29/17 0650: Anion Gap 10, Estimated GFR > 60, BUN/Creatinine Ratio 20.0, Total Bilirubin 0.5 , Direct Bilirubin 0.3, AST 108 H, ALT 93 H, Alkaline Phosphatase 59, Total Protein 6.1 L, Albumin 3.3 L Assessment/Plan Assessment: 31 yo F smoker with h/o alcohol abuse, HTN, HLD, previous withdrawal seizure, pancreatitis, ADHD, anxiety, opiate dependence, last admitted for alcohol detox to [place] in 2015, after which she continued to drink and is here today for alcohol detox. Problem List 1. Alcohol Detox/withdrawal 2. Alcoholic gastritis 3. Transaminitis 2/2 alcohol use 4. History of anxiety, opiate dependence 5. Smoker 6. Hypokalemia and hypomagnesemia 7. Hypertension Abd US- 1. Mild diffuse heterogeneous abnormal increased echotexture is noted within the liver, consistent with diffuse liver disease, likely hepatic steatosis. No sonographic evidence of any superimposed discrete focal abnormality present. 2. The pancreas shows apparent subtle diffuse hypoechogenicity, may represent normal finding versus mild early pancreatitis. Clinical and lab correlation is recommended. Plan -Continue CIWA protocol ativan PRN -Taper PO ativan to 1 mg Q6hrs today -Nausea now resolved; was likely 2/2 alcoholic gastritis. Cont Tigan as needed -Transaminitis improving; likely 2/2 alcoholic hepatitis; continue daily LFTs -Hepatitis A,B and C neg -Electrolyte derangements corrected; monitor daily labs and correct as needed -Continue to hold Ritalin and xanax. can resume lisinopril if BP >140/90. -Continue nicotine patch -Continue Folate, thaimine and MVI -Continue Omeprazole -Psych and Social work input appreciated -Patient plans to go to [facility] on discharge -SC lovenox for DVT ppx -Heart healthy diet -FC Problem List: 1. ALCOHOL WITHDRAWAL 2. Alcohol abuse Pain Ratin Pain Location: no pain at this time. Pain Goal: Remain pain free Pain Plan: As needed Tylenol Tomorrow's Labs & Rationales: CBC AND BEP Canelo Aguilar MD 10/29/17 1052: Attending MD Review Statement Attending Statement Attending MD Statement: examined this patient, discuss w/resident/PA/CIRCULAR KNITTER HELPER, agreed w/resident/PA/CIRCULAR KNITTER HELPER, discussed with family, reviewed EMR data (avail), discussed with nursing, discussed with case mgmt, reviewed images, amended to note Attending Assessment/Plan: Canelo Andre M.D. have examined this patient, reviewed available EMR data, personally reviewed images, discussed with resident/PA/CIRCULAR KNITTER HELPER, discussed management plan with housestaff and nursing staff, discussed managment plan all of healthcare providers, discussed management plan with patient and/or family, agreed with resident/PA/CIRCULAR KNITTER HELPER. The past history and parts of the chart have been autopopulated. Impression 31 year old woman * EtOH withdrawal/dependence * chronic xanax dependence * anxiety * Transaminitis related to etoh Plan -ativan per CIWA protocol -monitor electrolytes, LFTs (trending down) -f/u psychiatry and social work recommendations -IOP upon discharge -mvi, folate, thiamine -PPI for gastritis DVT prophylaxis at all times DC planning within 24 hours
[2017-10-29 10:00] VITALS: BP 120/72
[2017-10-29 14:33] VITALS: BP 122/70
[2017-10-29 21:30] VITALS: BP 136/96
[2017-10-30] VITALS (8 sets, daily range): BP systolic 120–134; BP diastolic 82–102
--- NOTE | 2017-10-30 07:54 | PN- Housestaff ---
Soto BULL,Darlyn 10/30/17 0754: Subjective Follow-up For: 1. Alcohol Detox 2. Alcoholic gastritis 3. Transaminitis 2/2 alcohol use 4. History of anxiety, opiate dependence 5. Smoker 6. Hypokalemia and hypomagnesemia 7. Hypertension Complaints: no complaints Subjective: Patient is seen and examined this morning lying comfortably in the bed, denies any complaints vital stable Review of Systems Constitutional: Reports: no symptoms. Objective Last 24 Hrs of Vital Signs/I&O Vital Signs Date Time Temp Pulse Resp B/P B/P Pulse O2 O2 Flow FiO2 Mean Ox Delivery Rate 10/30 806 74 128/86 05/ 0551 98.4 74 20 128/86 97 Room Air / 2130 97.9 78 18 136/96 96 Room Air / 1433 98.6 74 18 122/70 100 Room Air 05/ 1000 98.7 76 18 120/72 05/ 0955 78 122/80 Intake & Output 10/30 1600 10/30 0800 10/30 0000 Intake Total 490 1000 Output Total Balance 490 1000 Intake, IV 10 Intake, Oral 480 1000 Number 0 Bowel Movements Physical Exam General Appearance: Alert, Oriented X3, Cooperative, No Acute Distress Skin: Bruise of rt upper arm HEENT: Mucous Membr. moist/pink Cardiovascular: Regular Rate, Normal S1, Normal S2 Lungs: Clear to Auscultation, Normal Air Movement Abdomen: Soft, No Tenderness Extremities: No Edema, Normal Pulses Current Medications: Current Medications Sig/Guy Start time Last Medication Dose Route Stop Time Status Admin Acetaminophen 325 MG .STK-MED ONE 10/29 173 DC PO 10/29 173 Acetaminophen 325 MG Q6P PRN 10/26 0045 AC 10/29 PO 1737 Citalopram 20 MG DAILY 10/28 899 AC 10/30 Hydrobromide PO 0810 Enoxaparin Sodium 40 MG DAILY 10/26 899 AC 10/27 SC 0851 Folic Acid 1 MG DAILY 10/26 899 AC 10/30 PO 0807 Gabapentin 300 MG Q8 10/28 599 AC 10/30 PO 0517 Lorazepam 1 MG Q8 10/30 1400 DC PO Lorazepam 1 MG BID 10/30 899 UNVr PO Lorazepam 1 MG Q6 10/29 1200 DC 10/30 PO 0517 Lorazepam 1.5 MG Q6 10/28 599 DC 10/29 PO 0623 Lorazepam 1 MG Q1P PRN 10/26 0145 AC 10/29 IV 0059 Lorazepam 2 MG Q2P PRN 10/25 2014 AC 10/28 IV 0153 Melatonin 5 MG ONCE ONE 10/30 0300 DC 10/30 PO 10/30 0301 0303 Metoprolol Succinate 100 MG DAILY 10/26 09 AC 10/30 PO 0807 Multivitamins 1 TAB DAILY 10/26 0900 AC 10/30 PO 0810 Nicotine 14 MG DAILY 10/27 1400 AC TOP Omeprazole 40 MG DAILY AC 10/27 07 AC 10/30 PO 0517 Thiamine HCl 100 MG DAILY 10/26 09 AC 10/30 PO 0807 Trimethobenzamide HCl 200 MG 4 TIMES/DAY PRN 10/26 0100 AC 10/26 IM 0117 Last 24 Hrs of Lab/Charles Results Last 24 Hrs of Labs/Mics: Laboratory Tests 10/30/17 0816: Sodium Pending, Potassium Pending, Chloride Pending, Carbon Dioxide Pending, Anion Gap Pending, BUN Pending, Creatinine Pending, BUN/Creatinine Ratio Pending 10/30/17 0650: CBC w Diff Pending, WBC Pending, RBC Pending, Hgb Pending, Hct Pending, MCV Pending, MCH Pending, MCHC Pending, RDW Pending, Plt Count Pending, MPV Pending Lines/Diet/Fluids Lines: peripheral lines Assessment/Plan Assessment: 31 yo F smoker with h/o alcohol abuse, HTN, HLD, previous withdrawal seizure, pancreatitis, ADHD, anxiety, opiate dependence, last admitted for alcohol detox to [place] in 2015, after which she continued to drink and is here today for alcohol detox. Problem List 1. Alcohol Detox/withdrawal 2. Alcoholic gastritis 3. Transaminitis 2/2 alcohol use 4. History of anxiety, opiate dependence 5. Smoker 6. Hypokalemia and hypomagnesemia 7. Hypertension Abd US- 1. Mild diffuse heterogeneous abnormal increased echotexture is noted within the liver, consistent with diffuse liver disease, likely hepatic steatosis. No sonographic evidence of any superimposed discrete focal abnormality present. 2. The pancreas shows apparent subtle diffuse hypoechogenicity, may represent normal finding versus mild early pancreatitis. Clinical and lab correlation is recommended. Plan -Continue CIWA protocol ativan PRN -Taper PO ativan to 1 mg bid today; She will follow up with her psychiatrist to taper her benzos as she will not be accepted to [facility] without tapering off all benzos -Nausea now resolved; was likely 2/2 alcoholic gastritis. Cont Tigan as needed -Transaminitis improving; likely 2/2 alcoholic hepatitis; continue daily LFTs -Hepatitis A,B and C neg -Electrolyte derangements corrected; monitor daily labs and correct as needed -Continue to hold Ritalin and xanax. Can resume lisinopril if BP >140/90. -Continue nicotine patch -Continue Folate, thaimine and MVI -Continue Omeprazole -Psych and Social work input appreciated -Patient plans to go to [facility] on discharge -SC lovenox for DVT ppx -Heart healthy diet -FC y Problem List: 1. Alcohol dependence 2. ALCOHOL WITHDRAWAL Pain Ratin Pain Location: NA Pain Goal: Remain pain free Pain Plan: NA Tomorrow's Labs & Rationales: NONE Discharge Plan Discharge Disposition: home Stable for Discharge? Yes Anticipated Discharge (Day): today Estrada North MD 10/30/17 2003: Attending MD Review Statement Attending Statement Attending MD Statement: examined this patient, discuss w/resident/PA/PANTRY STEWARD/STEWARDESS, agreed w/resident/PA/PANTRY STEWARD/STEWARDESS, reviewed EMR data (avail), discussed with nursing, discussed with case mgmt, amended to note Attending Assessment/Plan: The patient was seen and discussed with house staff. Psychiatry input appreciated. OK to discharge today with plan of OP taper of benzo's. Psych appointment arranged.
--- NOTE | 2017-10-30 08:42 | Discharge Summary ---
Visit Information Visit Dates Admission Date: 10/26/17 Discharge Date: 10/30/17 Hospital Course Course Attending Physician: Estrada North MD Primary Care Physician: Lynne BULL,[facility] Course: 31 yo F smoker with h/o alcohol abuse, HTN, HLD, previous withdrawal seizure, pancreatitis, ADHD, anxiety, opiate dependence, last admitted for alcohol detox to [place] in 2016, after which she continued to drink and is here today for alcohol detox. Problem List 1. Alcohol Detox/withdrawal 2. Alcoholic gastritis 3. Transaminitis 2/2 alcohol use 4. History of anxiety, opiate dependence 5. Smoker 6. Hypokalemia and hypomagnesemia 7. Hypertension Hospital Course She was started on CIWA protocol ativan PRN and around the clock ativan which was eventually tapered down. Her nausea which was present at admission was likely 2/2 alcoholic gastritis and resolved within a few hrs with Tigan as needed. Transaminitis have been trending down. Hepatitis A,B and C were negative. Electrolyte derangements have been corrected; Folate, thaimine and MVI started. She will be discharged on her home dose of Ritalin and BP meds. Xanax was held while she was on ativan here in hospital. Since she was on chronic xanax at home she was discharged on ativan 1mg BID and advised to follow up with her psychiatrist to taper her benzos as she will not be accepted to [facility] without tapering off all benzos! Once her benzo's are tapered off, she can make an appointment for intake at the [facility]. SHe has an appointment with her psychiatrist for tomorrow 10/31/17, She tolerated detox well without complications. Complications: none Allergies: Coded Allergies: NO KNOWN ALLERGIES (04/11/11) Significant Procedures: Abd US- 1. Mild diffuse heterogeneous abnormal increased echotexture is noted within the liver, consistent with diffuse liver disease, likely hepatic steatosis. No sonographic evidence of any superimposed discrete focal abnormality present. 2. The pancreas shows apparent subtle diffuse hypoechogenicity, may represent normal finding versus mild early pancreatitis. Clinical and lab correlation is recommended. Disposition Summary Disposition Principal Diagnosis: 1. Alcohol Detox/withdrawal 2. Alcoholic gastritis 3. Transaminitis 2/2 alcohol use Additional Diagnosis: 4. History of anxiety, opiate dependence 5. Smoker 6. Hypokalemia and hypomagnesemia 7. Hypertension Discharge Disposition: home or self care Discharge Instructions General Discharge Information Code Status: Full Code Patient's Diet: Heart healthy Patient's Activity: As tolerated Follow-Up Instructions/Appts: Please follow up with your PCP in 1 week Please follow up with your psychiatrist Medications at Discharge Discharge Medications: Stop taking the following medications: Dextroamphetamine/Amphetamine (Dextroamp-Amphetamin 20 MG Tab) 20 MG TABLET ORAL DAILY as needed for ADHD Qty = 30 Dextroamphetamine/Amphetamine (Dextroamp-Amphet ER 20 MG Cap) 20 MG CAP.ER.24H ORAL Every Morning Qty = 30 Continue taking these medications: Alprazolam (Alprazolam) 1 MG TABLET 1 Tablet ORAL THREE TIMES DAILY Qty = 90 Comments: Last Taken: 05/03/16 Time: 1000 Sennosides/Docusate Sodium (Senokot-S Tablet) 8.6 MG-50 MG TABLET 1 Tablet ORAL Every night Comments: NOT TAKEN IN HOSPITAL Multivitamin (One Daily Multivitamin) 1 EACH TABLET 1 Tablet ORAL DAILY Days = 30 Comments: Last Taken: 10/30/17 Time: 8:10 AM Lisinopril (Lisinopril) 5 MG TABLET 1 Tablet ORAL DAILY Comments: NOT GIVEN IN THE HOSPITAL. Rosuvastatin Calcium (Crestor) 5 MG TABLET 1 Tablet ORAL DAILY Comments: NOT GIVEN IN THE HOSPITAL. Metoprolol Succinate (Metoprolol Succinate) 100 MG TAB.ER.24H 1 Tablet ORAL DAILY Comments: Last Taken:10/30/17 Time:8:07 AM Start taking the following new medications: Gabapentin (Gabapentin) 300 MG CAPSULE 300 Milligram ORAL EVERY 8 HOURS Qty = 30 No Refills Comments: Last Taken:10/30/17 Time:1:57 PM Citalopram Hydrobromide (Citalopram HBr) 20 MG TABLET 20 Milligram ORAL DAILY Qty = 30 No Refills Comments: Last Taken:10/30/17 Time:8:10 AM Copies To: Kris Batista MD Attending MD Review Statement Documenting Attending: Estrada North MD Other Findings: The patient was seen and agree regarding the plan of care upon discharge.
[2017-10-30 08:53] LABS: ABSOLUTE BASOPHIL COUNT 0 /CUMM (0.0-0.2); ABSOLUTE EOSINOPHIL COUNT 0.1 /CUMM (0.0-0.7); ABSOLUTE GRANULOCYTE CT 2.8 /CUMM (1.4-6.5); ABSOLUTE MONOCYTE COUNT 0.7 /CUMM (0.10-0.60); BASOPHIL % 0.7 % (0.0-2.0); EOSINOPHIL % 1.3 % (0-5); GRANULOCYTE % 49.4 % (42.2-75.2); MEAN CORPUSCULAR HGB 32.1 PG (27.0-31.0); MEAN CORPUSCULAR HGB CONC 32.9 G/DL (33.0-37.0); MEAN CORPUSCULAR VOLUME 97.5 FL (81.0-99.0); MEAN PLATELET VOLUME 9.5 FL (7.4-10.4); PLATELET COUNT 212 /CUMM (130-400); RBC DISTRIBUTION WIDTH 13.6 % (11.5-14.5); RED BLOOD CELL CT 4.16 /CUMM (4.20-5.40); WHITE BLOOD CELL COUNT 5.7 /CUMM (4.8-10.8)
[2017-10-30 09:17] LABS: HEMATOCRIT 40.5 % (37-47)
[2017-10-30] MEDS ORDERED: GABAPENTIN300 M2 PO (16:02)
[2017-10-30] MEDS ORDERED: CITALOPRAM HBR20 MG PO (16:02)
--- NOTE | 2017-10-30 16:04 | Patient Discharge Instructions ---
Discharge Instructions General Discharge Information You were seen/treated for: Alcohol Detox Special Instructions: Please follow up with your PCP within 1 week of discharge Please follow up with your psychiatrist tomorrow 10/31/17 for your already scheduled appointment. Diet Recommended Diet: Heart Healthy Activity Full Activity/No Limits: Yes Acute Coronary Syndrome Inclusion Criteria At DC or during hospital stay patient has or had the following: ACS DIAGNOSIS No Discharge Core Measures Meds if any: Prescribed or Continued at Discharge Meds if any: NOT Prescribed or Continued at Discharge Congestive Heart Failure Inclusion Criteria At DC or during hospital stay patient has or had the following: CHF DIAGNOSIS No Discharge Core Measures Meds if any: Prescribed or Continued at Discharge Meds if any: NOT Prescribed or Continued at Discharge Cerebrovascular accident Inclusion Criteria At DC or during hospital stay patient has or had the following: CVA/TIA Diagnosis No Discharge Core Measures Meds if any: Prescribed or Continued at Discharge Meds if any: NOT Prescribed or Continued at Discharge Venous thromboembolism Inclusion Criteria VTE Diagnosis No VTE Type NONE VTE Confirmed by (Test) NONE Discharge Core Measures - Per Current guidelines, there needs to be overlap - treatment for the first 5 days of Warfarin therapy. - If discharged on Warfarin prior to 5 days of - overlap therapy, the patient will need to be - assessed for post discharge needs including - *Post discharge parental anticoagulation - *Warfarin and/or parental anticoagulation education - *Follow up date to check INR post discharge At least 5 days overlap therapy as Inpatient No Meds if any: Prescribed or Continued at Discharge Note: Overlap Therapy is Warfarin and Anticoagulant Meds if any: NOT Prescribed or Continued at Discharge
--- NOTE | 2017-10-30 17:22 | PN- Psychiatry ---
Assessment/Plan Impression: MD noyola/u: Please see original consult for details Pt is a 31-year-old SWF who self-presented to the ED on 10/25 requesting etoh detox. She has a hx of seizure after a rapid benzo taper and DTs with etoh detox. She has been drinking alcohol but also taking benzos prescribed by her psychiatrist Dr. Villanueva. We spoke at length at the dangers of BZD treatment including respiratory depression and . She is amenable to a taper. There are no delusions, no SI or HI. She is amenable to IOP but will need to be tapered off BZD beforehand. MSE: 31 y/o F in NAD sitting in bed. She is somewhat subdued but pleasant and engages in interview. Her speech is clear and cognition is intact. Her mood is ok. her affect is mildly constricted. She is future oriented concerning treatment. Her Tp is linear thoughts include needing to detox as she is tired of worrying about getting her BZD scripts on time on is more aware of the dangers of this class of medications. Her insight and judgment re: having a problem and needing treatment are good. A/ 31 y/o F with etoh dep, bzd dep presents requesting etoh detox. She has also been taking BZD on top of drinking. She is amenable to taper and treatment. She is not suicidal, psychotic or delirious. She is not scoring on the CIWA and her vitals are stable. P/ I called her psychiatrist Dr. Villanueva with whom she has an appt tomorrow and left a message with law firm receptionist that pt will be dc'd tonight and that she requests bzd taper. I asked specifically that this message be relayed to Dr. Villanueva to ensure he understands pts wishes. Pt should obtain any BZD she needs from Dr. Villanueva and follow up with IOP when she is done with her taper. Please call with any questions. [id number] #[id number] Suggestion: imp Subjective Subjective: imp Objective Last 24 Hrs of Vital Signs/I&O Vital Signs Date Time Temp Pulse Resp B/P B/P Pulse O2 O2 Flow FiO2 Mean Ox Delivery Rate 10/30 1600 97.8 76 20 120/88 10/30 1418 98.2 64 20 128/102 97 10/30 1400 97.8 76 20 120/88 10/30 1200 98.0 76 20 134/82 05/07 1000 98.0 74 20 128/86 05/07 0807 74 128/86 05/07 0800 98.0 74 20 128/86 05/07 0551 98.4 74 20 128/86 97 Room Air / 2130 97.9 78 18 136/96 96 Room Air Intake & Output 10/30 1600 10/30 0800 05/ 0000 Intake Total 747 329 3712 Output Total Balance 173 078 9818 Intake, IV 10 Intake, Oral 854 606 4839 Number 0 0 Bowel Movements
== END 2017-10-30 18:02 | DRG 775 ==
LOC: ERH 16:03 → ERHI 10-26 00:12 → 2NB 10-26 00:12 → ENRESERV 10-26 01:40 → 2NB 10-26 03:06
PROVIDERS: Emergency Medicine; Student in an Organized Health Care Education/Training Program
DX: F10.239 Alcohol dependence with withdrawal, unspecified (principal); E87.6 Hypokalemia; E83.42 Hypomagnesemia; F17.200 Nicotine dependence, unspecified, uncomplicated; K29.20 Alcoholic gastritis without bleeding; R74.0 Nonspecific elevation of levels of transaminase and lactic acid dehydrogenase [LDH]; F13.20 Sedative, hypnotic or anxiolytic dependence, uncomplicated; E78.5 Hyperlipidemia, unspecified; I10 Essential (primary) hypertension; F41.9 Anxiety disorder, unspecified; F90.9 Attention-deficit hyperactivity disorder, unspecified type; K21.9 Gastro-esophageal reflux disease without esophagitis; F17.210 Nicotine dependence, cigarettes, uncomplicated
CPT/HCPCS: 2NBSP; 36415; 36592; 80307; 82436; 93005; 93010; 96372; 96374; 96375; 99232; G0480; J1650; J2405; J3250; J3480; J3490; J7060; J7508